=== PATIENT | female | born 1955 | race Caucasian/White ===

== ENCOUNTER → 2017-05-22 | Outpatient (CLI) | payer OTHER ==
[2017-05-22 16:54] LABS: BASOPHIL % 0.6 % (0-2); PLATELET COUNT 269 x10^3mcL (130-400)
[2017-05-22 17:20] LABS: ALBUMIN 3.7 g/dL (3.4-5.0); ALKALINE PHOSPHATASE 76 U/L (46-116); ALT/SGPT 29 U/L (14-59); AST/SGOT 22 U/L (15-37); BILIRUBIN DIRECT 0.11 mg/dL (0.0-0.2); BILIRUBIN TOTAL 0.4 mg/dL (0.20-1.00); CALCIUM 8.8 mg/dL (8.5-10.1); CARBON DIOXIDE 29.6 mmol/L (21-32); CHLORIDE SERUM 106 mmol/L (98-107); CREATININE SERUM 0.5 mg/dL (0.6-1.0); FREE T4 1.04 ng/dL (0.76-1.46); GFR1 > 60 mL/min; GLUCOSE SERUM 90 mg/dL (74-106); HDL CHOLESTEROL 48 mg/dL (40-60); LIPASE 288 IU/L (73-393); MAGNESIUM 2.2 mg/dL (1.8-2.4); POTASSIUM SERUM 3.6 mmol/L (3.5-5.1); SODIUM SERUM 140 mmol/L (136-145); TOTAL PROTEIN, SERUM 7.5 g/dL (6.4-8.2); TRIGLYCERIDES 181 mg/dL (<150)
[2017-05-22 17:22] LABS: CHOLESTEROL 227 mg/dL (<200); CHOLESTEROL/HDL RATIO 4.7
== END | disposition home or self-care (01) ==
LOC: LB 16:24
PROVIDERS: Internal Medicine
DX: Z00.00 Encounter for general adult medical examination without abnormal findings (principal)
CPT/HCPCS: 84439